=== PATIENT | female | born 2000 | race American Indian/Alaskan Native ===

== ENCOUNTER 2021-08-13 10:46 | Emergency (ER) | payer OTHER ==
[~2021-08-13] VITALS: Ht 167.6 cm; Wt 45.4 kg
[~2021-08-13 10:46] MED LIST: AZIT100SU PO; AZIT200SU PO; CEPH250SUA PO; CODACEE120 PO; CRUTCH4 USE; IBUP100S; MULTCH; ONDA4ODT MM
[2021-08-13] MEDS ORDERED: Norco 5-325 Ta1 EACH PO (12:00)
[2021-08-13] MEDS ORDERED: Naprosyn500 MG PO (12:01)
== END 2021-08-13 12:15 | disposition home or self-care (01) ==
LOC: ER 10:46
DX: S22.32XA Fracture of one rib, left side, initial encounter for closed fracture (principal); Z88.0 Allergy status to penicillin; Z88.6 Allergy status to analgesic agent; Z88.1 Allergy status to other antibiotic agents; Y04.8XXA Assault by other bodily force, initial encounter
CPT/HCPCS: 71101

== ENCOUNTER 2021-10-01 15:57 | Emergency (ER) | payer OTHER ==
[~2021-10-01] VITALS: Ht 167.6 cm; Wt 47.6 kg
[~2021-10-01 15:57] MED LIST changes: +Naprosyn500 MG PO; +Norco 5-325 Ta1 EACH PO
[2021-10-01] MEDS ORDERED: CEPH500 PO (16:41)
== END 2021-10-01 16:50 | disposition home or self-care (01) ==
LOC: ER 15:57
DX: L03.314 Cellulitis of groin (principal); Z88.0 Allergy status to penicillin; Z88.6 Allergy status to analgesic agent; Z88.1 Allergy status to other antibiotic agents
CPT/HCPCS: A9270

== ENCOUNTER 2021-10-04 11:03 | Emergency (ER) | payer OTHER ==
[~2021-10-04] VITALS: Ht 167.6 cm; Wt 47.6 kg
[~2021-10-04 11:03] MED LIST changes: +CEPH500 PO
[2021-10-04] MEDS ORDERED: CORTISONE60 GM TOP (11:33)
== END 2021-10-04 11:40 | disposition home or self-care (01) ==
LOC: ER 11:03
DX: L30.9 Dermatitis, unspecified (principal); Z79.899 Other long term (current) drug therapy
CPT/HCPCS: 99283